=== PATIENT | female | born 1950 | race Caucasian/White ===

== ENCOUNTER 2017-12-06 06:40 | Emergency (ER) | payer OTHER, MEDICARE ==
[~2017-12-06] VITALS: Ht 152.4 cm; Wt 63.5 kg
[~2017-12-06 06:40] MED LIST: BENADRYL25 MG; BONIVA150 MG; DAILY VITAMIN1 EACH PO; EPIPEN0.3 MG/0.3 IM; FLEXERIL PO; HYDROCODONE-AP1 EAC6 PO; IBUPROFEN 600600 M1 PO; LEVAQUIN 250 M250 MG PO; MEDROLDOSEPACK PO; MOBIC15 MG PO; NORCO 5-325 TA1 EACH PO; PEPCID40 MG PO; PERCOCET 5-3251 EACH PO; PREDNISONE 10 M10 M1 PO; PREDNISONE50 MG PO; SIMVASTATIN20 MG; ZOCOR; ZOFRAN ODT4 MG PO; ZPAK PO; ZYRTEC
[2017-12-06] MEDS ORDERED: MELATONIN5 M1 (06:47)
[2017-12-06] MEDS ORDERED: FLEXERIL (06:48)
[2017-12-06 07:28] LABS: ABSOLUTE BASOPHILS 0.1 thou/uL (0.0-0.2); ABSOLUTE EOSINOPHILS 0.1 thou/uL (0.0-0.7); ABSOLUTE LYMPHOCYTES 1.7 thou/uL (0.8-5.3); ABSOLUTE MONOCYTES 0.6 thou/uL (0.0-1.2); ABSOLUTE NEUTROPHILS 7.2 thou/uL (1.6-8.1); BASOPHILS 0.6 %; EOSINOPHILS 1.5 %; HEMATOCRIT 42.3 % (37.0-47.0); MCH 30.7 pg (26.0-34.0); MCV 93.2 fL (80.0-100.0); MPV 8.6 fl. (7.2-11.1); NUCLEATED RBCS 0 /100WBC; PLATELET COUNT* 284 thou/uL (150-400); POLYS 73.9 %; RBC 4.54 mil/uL (4.20-5.00); RDW-CV 13.6 % (10.5-14.5); WBC 9.7 thou/uL (4.0-11.0)
[2017-12-06 07:41] LABS: CREATININE 0.7 mg/dL (0.6-1.3); POTASSIUM 3.8 mmol/L (3.5-5.1)
[2017-12-06 07:45] LABS: ALBUMIN 3.8 g/dL (3.4-5.0); TOTAL BILIRUBIN 0.3 mg/dL (<0.1-1.0); TOTAL PROTEIN 7.4 g/dL (6.4-8.2)
[2017-12-06 07:58] LABS: URINE BILIRUBIN NEGATIVE (Negative); URINE BLOOD 1+ (Negative); URINE CLARITY CLEAR; URINE COLOR YELLOW; URINE GLUCOSE-RANDOM NEGATIVE (Negative); URINE KETONES NEGATIVE (Negative); URINE LEUKOCYTES-REFLEX NEGATIVE (Negative); URINE NITRITE-REFLEX NEGATIVE (Negative); URINE PROTEIN NEGATIVE (Negative); URINE SPECIFIC GRAVITY <= 1.005 (1.005-1.030); URINE UROBILINOGEN 0.2 E.U./dl (0.2-1.0)
[2017-12-06] MEDS ORDERED: VALTREX1000 MG PO (08:56)
[2017-12-06] MEDS ORDERED: NAPROSYN500 MG PO (08:56)
[2017-12-06] MEDS ORDERED: FLEXERIL PO (08:56)
[2017-12-06] MEDS ORDERED: HYDROCODONE-AP1 EAC6 PO (08:56)
[2017-12-06 09:08] VITALS: BP 153/67
--- NOTE | 2017-12-06 10:22 | EKG ---
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
[2017-12-08 18:11] LABS: HSV 1 DNA Negative (Negative); HSV 2 DNA Negative (Negative)
== END 2017-12-06 09:08 | disposition home or self-care (01) ==
LOC: M.ERS 06:40
PROVIDERS: Emergency Medicine
DX: M54.6 Pain in thoracic spine (principal); B02.9 Zoster without complications; E78.5 Hyperlipidemia, unspecified; M81.0 Age-related osteoporosis without current pathological fracture; Z87.440 Personal history of urinary (tract) infections; Z88.1 Allergy status to other antibiotic agents; Z88.0 Allergy status to penicillin; Z88.8 Allergy status to other drugs, medicaments and biological substances; Z87.891 Personal history of nicotine dependence

== ENCOUNTER → 2017-12-21 | Outpatient (CLI) | payer OTHER, MEDICARE ==
[~2017-12-21] MED LIST changes: +FLEXERIL; +MELATONIN5 M1; +NAPROSYN500 MG PO; +VALTREX1000 MG PO
== END ==
LOC: M.RAD 15:33
DX: M81.0 Age-related osteoporosis without current pathological fracture (principal); Z78.0 Asymptomatic menopausal state

== ENCOUNTER → 2018-04-19 | Outpatient (CLI) | payer OTHER, MEDICARE | LOC: M.RAD 16:17 | DX: Z12.31 Encounter for screening mammogram for malignant neoplasm of breast (principal) ==

== ENCOUNTER 2018-08-27 17:30 | Emergency (ER) | payer OTHER ==
[~2018-08-27] VITALS: Ht 152.4 cm; Wt 61.2 kg
[2018-08-27 18:12] LABS: ABSOLUTE BASOPHILS 0.1 thou/uL (0.0-0.2); ABSOLUTE EOSINOPHILS 0.1 thou/uL (0.0-0.7); ABSOLUTE LYMPHOCYTES 1.3 thou/uL (0.8-5.3); ABSOLUTE MONOCYTES 0.3 thou/uL (0.0-1.2); ABSOLUTE NEUTROPHILS 7.9 thou/uL (1.6-8.1); BASOPHILS 0.8 %; EOSINOPHILS 0.5 %; HEMATOCRIT 42.3 % (37.0-47.0); HEMOGLOBIN 14.1 gm/dL (12.0-15.0); LYMPHOCYTES 13.8 %; MCH 31.1 pg (26.0-34.0); MCHC 33.5 g/dL (28.0-37.0); MCV 92.8 fL (80.0-100.0); MONOCYTES 3.4 %; MPV 9.3 fl. (7.2-11.1); NUCLEATED RBCS 0 /100WBC; PLATELET COUNT* 289 thou/uL (150-400); POLYS 81.5 %; RBC 4.55 mil/uL (4.20-5.00); RDW-CV 13.4 % (10.5-14.5); WBC 9.7 thou/uL (4.0-11.0)
[2018-08-27 18:13] LABS: URINE BILIRUBIN NEGATIVE (Negative); URINE BLOOD 1+ (Negative); URINE CLARITY CLEAR; URINE COLOR YELLOW; URINE GLUCOSE-RANDOM NEGATIVE (Negative); URINE KETONES NEGATIVE (Negative); URINE LEUKOCYTES-REFLEX NEGATIVE (Negative); URINE NITRITE-REFLEX NEGATIVE (Negative); URINE PROTEIN NEGATIVE (Negative); URINE SPECIFIC GRAVITY <= 1.005 (1.005-1.030); URINE UROBILINOGEN 0.2 E.U./dl (0.2-1.0)
[2018-08-27 18:21] LABS: BACTERIA-REFLEX None Seen /HPF (None Seen); CASTS None Seen /LPF (None Seen); CRYSTALS None Seen /LPF (None Seen); SQUAMOUS NONE SEEN /LPF (0-3); URINE RBC None Seen /HPF (0-2); URINE WBC-REFLEX 0-5 Rare /HPF (0-5)
[2018-08-27 18:30] LABS: ANION GAP 8 mmol/L (7-16); BUN 19 mg/dL (7-18); CALCIUM 9.4 mg/dL (8.5-10.1); CHLORIDE 103 mmol/L (98-107); CO2 27 mmol/L (21-32); CREATININE 0.9 mg/dL (0.6-1.3); GLUCOSE 145 mg/dL (70-99); POTASSIUM 3.5 mmol/L (3.5-5.1); SODIUM 138 mmol/L (136-145); TROPONIN-I LEVEL <0.06 ng/mL (<0.06)
[2018-08-27 18:35] LABS: ALBUMIN 4.1 g/dL (3.4-5.0); ALKALINE PHOSPHATASE 72 U/L (46-116); LIPASE 127 U/L (73-393); SGOT 19 U/L (15-37); SGPT 19 U/L (30-65); TOTAL BILIRUBIN 0.2 mg/dL (<0.1-1.0); TOTAL PROTEIN 7.7 g/dL (6.4-8.2)
[2018-08-27 20:32] VITALS: BP 152/68
--- NOTE | 2018-08-28 16:06 | EKG ---
[place] [address] ELECTROCARDIOGRAM REPORT Name: TANGELATONYRENZO S Room: [facility]#: [id number] Admission: 08/27/18 Attend Phys: Discharge: 08/27/18 Date of : 52 Report #: [id number] THIS REPORT FOR: //name// 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
== END 2018-08-27 20:33 | disposition home or self-care (01) ==
LOC: M.ERS 17:30
PROVIDERS: Physician Assistant
DX: I95.1 Orthostatic hypotension (principal); E78.5 Hyperlipidemia, unspecified; Z87.891 Personal history of nicotine dependence; Z88.0 Allergy status to penicillin; Z88.1 Allergy status to other antibiotic agents; Z88.8 Allergy status to other drugs, medicaments and biological substances

== ENCOUNTER 2018-09-10 14:17 | Emergency (ER) | payer OTHER ==
[~2018-09-10] VITALS: Ht 152.4 cm; Wt 61.2 kg
[2018-09-10] MEDS ORDERED: LISINOPRIL5 MG PO (14:28)
[2018-09-10] MEDS ORDERED: ZANAFLEX4 MG PO (15:45)
[2018-09-10] MEDS ORDERED: NABUMETONE 750750 M1 PO (15:45)
[2018-09-10 15:52] VITALS: BP 143/70
== END 2018-09-10 15:53 | disposition home or self-care (01) ==
LOC: M.ERS 14:17
DX: S29.012A Strain of muscle and tendon of back wall of thorax, initial encounter (principal); M81.0 Age-related osteoporosis without current pathological fracture; Z87.440 Personal history of urinary (tract) infections; Z88.1 Allergy status to other antibiotic agents; Z88.0 Allergy status to penicillin; Z87.891 Personal history of nicotine dependence; X58.XXXA Exposure to other specified factors, initial encounter; Y93.89 Activity, other specified; Y92.89 Other specified places as the place of occurrence of the external cause; Y99.8 Other external cause status

== ENCOUNTER → 2018-09-26 | Outpatient (CLI) | payer OTHER ==
[~2018-09-26] MED LIST changes: +DIPHENHIST50 MG PO; +FLONASE 0.05%50 MCG NASAL; +LISINOPRIL5 MG PO; +NABUMETONE 750750 M1 PO; +ZANAFLEX4 MG PO
--- NOTE | ~2018-09-26 | PAINCON ---
[address] [address] PAIN MANAGEMENT CONSULTATION Name: RENZO GORDON [id number] Admission: 09/26/18 Attend Phys: Donavan Schneider MD Discharge: Date of : 52 Report #: [id number] THIS REPORT FOR: //name// CC: Donavan Romero DATE OF SERVICE: 09/26/2018 CHIEF COMPLAINT: Right shoulder and right arm pain. HISTORY OF PRESENT ILLNESS: The patient is a 68-year-old female who has been referred to the pain clinic for evaluation. She has been experiencing pain involving the right shoulder. She states that the pain started on about 09/09/2018. States that she woke up and was experiencing pain in her right shoulder as well as in the right arm. Pain worsened over a period of time to the point that she went to the Emergency Room. She was treated with a nonsteroidal anti-inflammatory medication and continues to have pain, which is still problematic. She describes it as a cramping sensation. Not sure of anything that relieves it. It radiates down the posterior portion of her arm on the right side down into the back side of her arm into the elbow area. Rates it as a 7-9/10. She has used a TENS unit and it provided a small ____ of relief. She has not had pain like this in the past. She has seen a chiropractor in the past. She has undergone two treatments without resolution of her discomfort. Denies any cardiac history. ALLERGIES: AMOXICILLIN. CURRENT MEDICATIONS: Simvastatin 20 mg, lisinopril 5 mg, melatonin 10 mg, Benadryl, Flonase. PAST MEDICAL HISTORY: Osteoporosis, hypertension, hypothyroidism, lumbar spondyloarthritis, atopic vaginitis, low back pain, hypercholesterolemia, and eczema. PAST SURGICAL HISTORY: Tonsillectomy at age 14. ____ at age 46. REVIEW OF SYSTEMS: Generally good health, fatigue, wears glasses, earaches, chronic sinus, joint pain, joint stiffness, muscle weakness and joints, muscle cramping, back pain, difficulty walking, chronic back pain/thoracic. LABORATORY DATA: MRI of the cervical spine dated 09/19/2018: 1. C4-C5, there is minimal disk osteophyte complex and buckling of ligamentum flavum. There is left facet hypertrophy. There is no canal or foraminal compromise. Thecal sac 1.2 cm AP. 2. At C5-C6, there is a disk osteophyte complex with uncinate process spurring. There is buckling of the ligamentum flavum. [place] [address] PAIN MANAGEMENT CONSULTATION Name: HEIDIRENZO S Room: [facility]#: [id number] Admission: 09/26/18 Attend Phys: Donavan Schneider MD Discharge: Date of : 52 Report #: [id number] stenosis. There is cypnxbqb-ob-eedwxr bilateral foraminal narrowing. Thecal sac 0.9 cm AP. 3. C6-C7, there is disk osteophyte complex with uncinate process spurring. There is buckling of the ligamentum flavum. There is mild central canal stenosis. There is xqll-ih-cigaqdkw bilateral foraminal narrowing. The thecal sac at 0.9 mm AP. 4. C7/T1, there is facet hypertrophy without canal or foraminal compromise. Thecal sac 1.2 cm AP. PAIN CLINIC ASSESSMENT/PQRS: 1. The patient is not being treated for rheumatoid arthritis. The patient has some arthritic changes in her neck. Height 5 feet 0 inches, weight 134 pounds, BMI is 26.2. 2. Vital signs: Blood pressure 129/84, heart rate 85, respiratory rate 16, room air saturation 95, temperature 98.2. 3. Pain intensity 5/10. 4. Fall history: The patient has not fallen in the last 3 months. 5. Blood thinner. The patient is not on a blood thinning medication. 6. Hypertension. The patient is being treated for hypertension. 7. Opioid greater than 6 weeks. The patient is not on an opioid regimen. 8. Functional assessment tool. 9. Recreational drug use. The patient denies use of recreational drugs. 10. Tobacco: The patient denies use of tobacco. 11. Alcohol: The patient denies frequent use of alcohol. PHYSICAL EXAMINATION: GENERAL: The patient is a well-developed, well-nourished white female. Appears her stated age. She is alert and oriented x 3. Her affect is appropriate. Speech is fluent. HEENT: Normocephalic, atraumatic. Extraocular eye muscles intact. Sclerae nonicteric. Mucous membranes are moist. The patient has own glasses. She is accompanied by her . NECK: Complains of pain and discomfort in the neck with pain that is radiating down to the posterior portion of her right arm. Has some pain in the paraspinous area. HEART: Regular rate. LUNGS: Clear to auscultation. ABDOMEN: Nontender. Bowel sounds present. EXTREMITIES: Lower extremity muscle strength is judged to be 5/5 for the major muscle groups in the lower extremity. The patient without significant scoliosis, kyphosis or lordosis. Lower extremity muscle strength is judged to be 5-/5 for the major muscle groups in the lower extremity. Forward bending, lumbar extension, left and right lateral rotation were not problematic. IMPRESSION: Cervical radiculopathy in the C6-C7 dermatomal [place] [address] PAIN MANAGEMENT CONSULTATION Name: RENZO GORDON Room: [facility]#: [id number] Admission: 09/26/18 Attend Phys: Donavan Schneider MD Discharge: Date of : 52 Report #: [id number] RECOMMENDATIONS: We discussed treatment options with the patient. The patient's MRI was reviewed line by line with her and her . She and he both state that they understand. A model was used. The areas of pathology were discussed. At this juncture, she feels that her pain continues to be quite problematic. We will have her consider a cervical epidural steroid injection. The risks and benefits, which include but are not limited to infection, worsening of pain, no improvement in pain, nerve damage, trauma, worsening of muscle soreness were discussed. The patient will return to the pain clinic at which time she will then undergo a cervical epidural steroid injection. We would like to thank you for letting us participate in her care. We hope she continues to improve. By: [id number]. Bob Schneider MD /nt
== END ==
LOC: M.PC 05:28
DX: G89.29 Other chronic pain (principal); M25.511 Pain in right shoulder; M54.12 Radiculopathy, cervical region; M81.0 Age-related osteoporosis without current pathological fracture; I10 Essential (primary) hypertension; E03.9 Hypothyroidism, unspecified; M47.816 Spondylosis without myelopathy or radiculopathy, lumbar region; E78.00 Pure hypercholesterolemia, unspecified; Z88.1 Allergy status to other antibiotic agents; Z79.899 Other long term (current) drug therapy; Z79.891 Long term (current) use of opiate analgesic

== ENCOUNTER 2020-03-24 10:30 | Emergency (ER) | payer MEDICARE ==
[~2020-03-24] VITALS: Ht 152.4 cm; Wt 61.2 kg
[2020-03-24] MEDS ORDERED: LEVO-T25 MCG PO (10:41)
[2020-03-24 11:05] LABS: URINE BILIRUBIN NEGATIVE (Negative); URINE BLOOD 1+ (Negative); URINE CLARITY CLEAR; URINE COLOR YELLOW; URINE GLUCOSE-RANDOM NEGATIVE (Negative); URINE KETONES NEGATIVE (Negative); URINE LEUKOCYTES-REFLEX NEGATIVE (Negative); URINE NITRITE-REFLEX NEGATIVE (Negative); URINE PROTEIN NEGATIVE (Negative); URINE UROBILINOGEN 0.2 E.U./dl (0.2-1.0)
[2020-03-24 11:11] LABS: SQUAMOUS NONE SEEN /LPF (0-3); URINE WBC-REFLEX None Seen /HPF (0-5)
[2020-03-24 11:12] LABS: BACTERIA-REFLEX 1-9 Few /HPF (None Seen); CASTS None Seen /LPF (None Seen); CRYSTALS None Seen /LPF (None Seen); MUCUS None Seen strn/LPF (None Seen); URINE RBC 0-2 Rare /HPF (0-2)
[2020-03-24 11:21] LABS: ABSOLUTE BASOPHILS 0.1 thou/uL (0.0-0.2); ABSOLUTE EOSINOPHILS 0.1 thou/uL (0.0-0.7); ABSOLUTE LYMPHOCYTES 2.3 thou/uL (0.8-5.3); ABSOLUTE MONOCYTES 0.6 thou/uL (0.0-1.2); BASOPHILS 0.9 %; EOSINOPHILS 1.7 %; HEMATOCRIT 43.9 % (37.0-47.0); HEMOGLOBIN 15.2 gm/dL (12.0-15.0); LYMPHOCYTES 32.7 %; MCH 32.4 pg (26.0-34.0); MCHC 34.6 g/dL (28.0-37.0); MCV 93.7 fL (80.0-100.0); MONOCYTES 8.2 %; MPV 8.6 fl. (7.2-11.1); NUCLEATED RBCS 0 /100WBC; PLATELET COUNT* 291 thou/uL (150-400); POLYS 56.5 %; RBC 4.69 mil/uL (4.20-5.00); RDW-CV 14.5 % (10.5-14.5); WBC 7.1 thou/uL (4.0-11.0)
[2020-03-24 11:25] LABS: CALCIUM 9.7 mg/dL (8.5-10.1); CREATININE 0.8 mg/dL (0.6-1.3); POTASSIUM 4.1 mmol/L (3.5-5.1)
[2020-03-24 11:30] LABS: ALBUMIN 4.3 g/dL (3.4-5.0); TOTAL BILIRUBIN 0.4 mg/dL (<0.1-1.0); TOTAL PROTEIN 7.9 g/dL (6.4-8.2)
[2020-03-24] MEDS ORDERED: HYDROCODON-ACE1 EAC7 PO (12:46)
[2020-03-24 13:00] VITALS: BP 136/69
--- NOTE | 2020-03-24 16:16 | EKG ---
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: [facility] : 1950 Requested By: Yao Hussein Order Number: [id number] MD: Yo Ruiz Measurements Intervals [place] Rate: 70 P: 42 [place]: 169 QRS: -19 QRSD: 85 T: 57 QT: 384 QTc: 415 Interpretive Statements Sinus rhythm Borderline left axis deviation Compared to ECG 08/27/2018 17:42:24 Left ventricular hypertrophy no longer present Electronically Signed On 03-24-2020 16:16:05 CDT by Yo Ruiz [email or web address] <ELECTRONICALLY SIGNED> By: Yo Ruiz MD, [facility] 03/24/20 1616 1117 1117 Yo Ruiz MD, [facility] /EPI
== END 2020-03-24 13:00 | disposition home or self-care (01) ==
LOC: M.ERS 10:30
PROVIDERS: Nurse Practitioner Psychiatric/Mental Health
DX: M48.54XA Collapsed vertebra, not elsewhere classified, thoracic region, initial encounter for fracture (principal); I10 Essential (primary) hypertension; E03.9 Hypothyroidism, unspecified; E78.5 Hyperlipidemia, unspecified; M81.0 Age-related osteoporosis without current pathological fracture; Z87.440 Personal history of urinary (tract) infections; Z87.891 Personal history of nicotine dependence; Z88.0 Allergy status to penicillin; Z88.1 Allergy status to other antibiotic agents; Z88.8 Allergy status to other drugs, medicaments and biological substances